=== PATIENT | female | born 1995 | race Caucasian/White ===

== ENCOUNTER 2020-03-29 10:04 | Emergency (ER) | payer BC, SELFPAY ==
[2020-03-29] VITALS (50 sets, daily range): BP systolic 102–161; BP diastolic 70–110; PULSE 110–152; RESP 13–35; TEMP 36.9; O2SAT 94–100
--- NOTE | ~2020-03-29 | US_ITS ---
EXAMINATION: US venous doppler [facility] DATE: 03/29/2020 12:08 INDICATION: Shortness of breath. TECHNIQUE: Grayscale ultrasound images without and with compression and Doppler ultrasound images of the bilateral lower extremity veins were obtained. COMPARISON: None. FINDINGS: The visualized portions of right common femoral vein, profunda (deep) femoral vein, femoral vein, pop liteal vein, posterior tibial veins, peroneal veins, gastrocnemius vein and greater saphenous vein ou tflow are patent. The visualized portions of left common femoral vein, profunda femoral vein, femoral vein, popliteal v ein, posterior tibial veins, peroneal veins, gastrocnemius vein and greater saphenous vein outflow ar e patent. IMPRESSION: 1. No deep venous thrombosis in either lower limb. Reviewed, dictated and finalized at location A.
--- NOTE | ~2020-03-29 | CT_ITS ---
EXAMINATION: CTA chest PE protocol DATE: 03/29/2020 13:08 INDICATION: Shortness of breath. Tachycardia. TECHNIQUE: Computed tomography angiography (CTA) of the chest was performed with 100 mL Omnipaque-350 intravenous contrast timed to evaluate the pulmonary arteries. Coronal maximum intensity projection 3D-reconstructions were created by the technologist. Automated exposure control and iterative reconst ruction technique were employed. The dose-length product was 369.42 mGy-cm. COMPARISON: None. FINDINGS: There is mild atelectasis in left lower lobe. No pleural effusion. There is right ventricul ar enlargement of the heart, consistent with right heart strain. No pericardial effusion. There is a large burden of acute pulmonary emboli involving all lobes. Main pulmonary artery is enlarged, consis tent with pulmonary arterial hypertension. There is a gallstone in the gallbladder. There is mild tho racic spondylosis. IMPRESSION: 1. Large burden of acute pulmonary emboli with right heart strain. I called this result to Dr. Gunnar cloud on 03/29/20 at 13:31. Reviewed, dictated and finalized at location A. IMPRESSION: 1. Large burden of acute pulmonary emboli with right heart strain. I called thi s result to Dr. Hay on 03/29/20 at 13:31.
--- NOTE | ~2020-03-29 | XR_ITS ---
EXAMINATION: XR chest 2V DATE: 03/29/2020 10:30 INDICATION: Shortness of breath. TECHNIQUE: Frontal and lateral views of the chest were obtained. COMPARISON: None. FINDINGS: The chest demonstrates clear lungs without pneumonia, pleural effusion, or pneumothorax. Th e heart size is normal. IMPRESSION: 1. No acute cardiopulmonary disease. Reviewed, dictated and finalized at location A.
--- NOTE | 2020-03-29 10:06 | ECG_ITS ---
Measurements Intervals [place] Rate: 137 P: 59 MT: 108 QRS: 11 QRSD: 88 T: -6 QT: 299 QTc: 452 Interpretive Statements SINUS TACHYCARDIA WITH SHORT MT INTERVAL INCOMPLETE RIGHT BUNDLE BRANCH BLOCK BORDERLINE ST-T WAVE ABNORMALITY- ANT/INF LEADS ABNORMAL ECG Electronically Signed On 03-29-2020 11:12:05 CDT by Malcolm Morrow D.O.
--- NOTE | 2020-03-29 10:30 | ED.SOB ---
HPI - SOB/Dyspnea General Chief Complaint: Shortness of Breath/Dyspnea Stated Complaint: SOB Time Seen by Provider: 03/29/20 10:29 Source: patient Mode of arrival: ambulatory Limitations: no limitations History of Present Illness HPI Narrative: Patient is a 25-year-old female who presents for evaluation of shortness of breath. Patient reports feeling short of breath over the past week. She denies any current chest pain, but states at times she has had some right-sided chest pain. No current jaw pain, neck pain or back pain. No fever, no cough or hemoptysis. Patient is on oral contraceptive and does smoke. No history of blood clot. No recent car or air travel. No leg swelling, patient reports occasional right-sided calf pain. Patient reports bruising to her left thigh and is not sure when that started or why that started. No recent falls or injuries. No recent surgeries. Related Data Home Medications Medication Instructions Recorded Confirmed Lexapro 20 mg PO DAILY 03/29/20 bupropion HCl [Wellbutrin XL] mg PO DAILY 03/29/20 Allergies Allergy/AdvReac Type Severity Reaction Status Date / Time No Known Allergies Allergy Unknown Verified 03/29/20 10:42 Review of Systems Review of Systems: Narrative: CONSTITUTIONAL: Denies fever, chills, or sweats. ENT: Denies rhinorrhea, congestion, sore throat, or otalgia. CARDIOVASCULAR: Denies current chest pain, reports palpitations, denies leg edema RESPIRATORY: Denies cough, reports shortness of breath GASTROINTESTINAL: Denies abdominal pain, nausea, vomiting, or diarrhea. GENITOURINARY: Denies dysuria or hematuria. SKIN: Denies rash or itching. MUSCULOSKELETAL: Denies back pain, joint pain, or myalgia. NEUROLOGIC: Denies headache, numbness, or weakness. [facility] Past Medical History Medical History (Updated 03/29/20 @ 15:48 by Carie Lloyd MD) No pertinent past medical history Surgical History Surgical History Previous section x 2 Social History Social History (Updated 03/29/20 @ 11:32 by Carie Lloyd MD) Smoking status: Current every day smoker Tobacco type: cigarettes Second hand tobacco smoke exposure: No Alcohol intake: current Substance use: never Gender identity (if verbalized by the patient): Female Sexual Orientation (if Verbalized by the Patient): Straight or Heterosexual Exam Narrative: Exam Narrative: GENERAL: Awake, alert, conversant HEAD: Normocephalic, atraumatic. EYES: PERRLA and EOMI. ENT: Nares clear, no rhinorrhea or epistaxis. Mucous membranes moist. NECK: Supple. CHEST: No respiratory distress, breathing even and non labored HEART: Tachycardic, sinus rhythm ABDOMEN:Non distended, non tender EXTREMITIES: Normal range of motion. No edema. No calf tenderness bilaterally. SKIN: Warm, dry, no rash. Scattered ecchymoses present to the left upper thigh. NEURO:No focal deficits. Alert and oriented x3 Course Vital Signs Vital signs: Vital Signs Pulse Rate 142 H 03/29/20 10:23 Respiratory Rate 26 H 03/29/20 10:23 Temperature 36.9 C 03/29/20 10:32 Pulse Rate 118 H 03/29/20 15:06 Respiratory Rate 27 H 03/29/20 15:06 Blood Pressure 121/87 03/29/20 15:06 Pulse Oximetry 97 03/29/20 15:06 Transfer Transfered to: [facility] Transportation: ALS Transfer rationale: Specialty unavailable Accepting physician: MD Joaquin MDM - SOB/Dyspnea MDM Narrative Medical decision making narrative: Patient presenting for evaluation of shortness of breath, palpitations. At the time of initial assessment, ABCs are intact, vital signs notable for tachycardia and tachypnea. No hypoxemia. Patient does not have really any true respiratory distress. No calf tenderness bilaterally. Given symptoms, tachycardia, fact the patient is on control and a smoker, I was very concerned for possible PE of which I explained to the patient.
[2020-03-29 10:32] LABS: Basophils Absolute Auto 0.1 K/mm3 (0.0-0.1); Basophils Percent Auto 0.4 % (0.2-1.2); Eosinophils Absolute Auto 0.2 K/mm3 (0-0.3); Eosinophils Percent Auto 1.2 % (0-4.4); Hematocrit 47.5 % (37.0-47.0); Hemoglobin 16.1 g/dL (12.0-15.0); Immature Granulocyte Absolute 0.06 K/mm3 (0.00-0.031); Immature Granulocyte Percent A 0.4 % (0-0.5); Lymphocytes Absolute Auto 2.24 K/mm3 (0.9-3.2); Lymphocytes Percent Auto 15.1 % (18.3-44.2); Mean Corpuscular HGB Conc 33.9 g/dl (32-36); Mean Corpuscular Hemoglobin 29.3 pg (26-34); Mean Corpuscular Volume 86.4 fl (80-100); Mean Platelet Volume 9.4 fl (7.4-10.4); Monocytes Absolute Auto 0.8 K/mm3 (0.1-0.6); Monocytes Percent Auto 5.1 % (2.6-8.5); Neutrophils Absolute Auto 11.5 K/mm3 (1.3-6.7); Neutrophils Percent Auto 77.8 % (45.5-73.1); Platelet Count Result 370 k/mm3 (150-375); Red Cell Distribution Width 13.5 % (11.5-14.5); White Blood Count 14.8 K/mm3 (4.5-10.0)
[2020-03-29] MEDS: SODIUM CHLORIDE 0.9% IV 1,000 ML 999 ML IV CONT ×2 (10:44)
[2020-03-29 10:45] LABS: Blood Urea Nitrogen 10 mg/dL (7-17); Calcium 9.8 mg/dL (8.4-10.2); Carbon Dioxide 20 mmol/L (22-30); Chloride 107 mmol/L (98-107); Estimated CRCL calculation 139 ml/min; Estimated Glomerular Filt Rate > 60; Glucose 132 mg/dL (65-105); Sodium 137 mmol/L (137-145)
--- NOTE | 2020-03-29 11:08 | PC.NURSE ---
rn report given to fausto
[2020-03-29 11:22] LABS: Add Urine Microscopic? YES; Appearance Urine Clear (Clear); Bilirubin Urine Negative (Negative); Blood Urine 1+ (Negative); Color Urine Yellow (Yellow); Glucose Urine UA Negative (Negative); Ketones Urine 1+ mg/dL (Negative); Leukocyte Esterase Ur Negative LEU/UL (Negative); Mucus Urine Rare /lpf; Nitrate Urine Negative (Negative); Protein Urine Negative (Negative); Specific Grav Ur 1.013 (1.001-1.035); Squamous Epithelial Cell Urine Occasional /hpf (Few); Urobilinogen Urine Negative mg/dL (<2.0); WBC Urine 0-3 /hpf
[2020-03-29 11:49] LABS: Partial Thromboplastin Time 25.6 SECONDS (22.3-36.8); Prothrombin Time 12.9 Seconds (11.1-14.7)
[2020-03-29 11:52] LABS: D Dimer 3.17 ug/mL (<0.48)
--- NOTE | 2020-03-29 12:00 | PC.NURSE ---
Cindy called and states they need a urine . I spoke with tech who sent her urine smaple down and he threw away the extra. Pt given urine cup to try to give another sample but she was then taken to US. Cindy made aware
[2020-03-29 12:21] LABS: NT Pro B Type Natriuretic Pept 1570 PG/ML (5-100)
[2020-03-29 12:26] LABS: Troponin I 0.085 ng/mL (0.000-0.034)
[2020-03-29] MEDS: HEPARIN SODIUM 5,000 UNITS/ML VIAL 7500 UNITS IV PUSH (13:55)
[2020-03-29] MEDS: HEPARIN SOD/D5W 100 UNITS/ML 25,000 UNITS/250 ML BAG 13 UNITS IV CONT (14:01)
--- NOTE | 2020-03-29 16:05 | PC.NURSE ---
Report called to ICU 6 RN, Jia, at [facility].
--- NOTE | 2020-03-29 16:13 | PM.CNCAR ---
Assessment and Plan Assessment and plan (1) Pulmonary embolism: Qualifiers: Acute cor pulmonale presence: with acute cor pulmonale Chronicity: acute Pulmonary embolism type: unspecified Qualified Code(s): I26.09 - Other pulmonary embolism with acute cor pulmonale Code(s): I26.99 - Other pulmonary embolism without acute cor pulmonale Status: Acute Assessment and Plan: She has bilateral PE with significant clot burden, and right ventricular enlargement, indicative of submassive PE, agree with heparin, she needs to be transferred to [facility] to arrange for EKOS (2) Elevated troponin: Code(s): R79.89 - Other specified abnormal findings of blood chemistry Status: Acute Assessment and Plan: Likely is due to right ventricular straining from clot burden with effect on right ventricular pressure, this indicates submassive PE (3) Acute cor pulmonale: Code(s): I26.09 - Other pulmonary embolism with acute cor pulmonale Status: Acute Assessment and Plan: Will arrange for transfer to [facility] for further treatment, Thank you for allowing me to participate in this patient's care, I will be following up with you. Please do not hesitate to call me for any other inquiry History of Present Illness History of Present Illness Consult date/time: 03/29/20 16:13 25 years old lady with no significant past history, came to hospital because of worsening shortness breath and chest pain with fatigue for about a week or so. Stated that she has been feeling fatigue and shortness breath for the past few days but worse yesterday and today when she arrived to the emergency room noted to have tachypnea and tachycardia, CT of the chest showed bilateral PE with right ventricular enlargement. He was started on heparin and she feels slightly better now. She had history of leg swelling both legs but she does not recall history of DVT in the legs. No history of PE or DVT in the past but she is currently on control and she is a smoker. EKG showed sinus tachycardia. Cardiac enzymes with slight elevation. CT of the chest showed bilateral PE with right ventricular enlargement. Reason For Visit: SOB Review of Systems Constitutional: Constitutional: Reports fatigue and Reports lethargy Cardiovascular: Cardiovascular: Reports chest pain, Reports leg edema and Reports palpitations Respiratory: Respiratory: Reports dyspnea and Reports dyspnea on exertion PMFSH Past Medical History Medical History No pertinent past medical history Surgical History Surgical History Previous section x 2 Family History Family History Other Breast cancer Social History Social History Smoking status: Current every day smoker Tobacco type: cigarettes Second hand tobacco smoke exposure: No Alcohol intake: current Substance use: never Gender identity (if verbalized by the patient): Female Sexual Orientation (if Verbalized by the Patient): Straight or Heterosexual Meds Home Medications and Allergies Home Medications Medication Instructions Recorded Confirmed Type norgestimate-ethinyl estradiol 1 tablet PO DAILY #84 tablet 12/19/19 Rx Lexapro 20 mg PO DAILY 03/29/20 History bupropion HCl [Wellbutrin XL] mg PO DAILY 03/29/20 History Allergies Allergy/AdvReac Type Severity Reaction Status Date / Time No Known Allergies Allergy Unknown Verified 03/29/20 10:42 Vital Signs Vital Signs - 24 hr 03/29/20 10:23 03/29/20 10:25 03/29/20 10:32 Temperature 36.9 C Pulse Rate 142 H 136 H 144 H Respiratory Rate 26 H 29 H 15 Blood Pressure 137/98 H 125/91 H Pulse Oximetry 97 96 03/29/20 10:33 03/29/20 10:38 03/29/20 10:45 Temperature
== END 2020-03-29 16:44 | disposition short-term general hospital (02) ==
PROVIDERS: Emergency Provider Emergency Medicine; PCP Family Medicine
DX: I26.09 Other pulmonary embolism with acute cor pulmonale (principal); R79.89 Other specified abnormal findings of blood chemistry; F17.210 Nicotine dependence, cigarettes, uncomplicated; R00.0 Tachycardia, unspecified; I45.10 Unspecified right bundle-branch block; R94.31 Abnormal electrocardiogram [ECG] [EKG]
CPT/HCPCS: 36415; 71046; 71275; 80048; 81001; 81025; 83880; 84443; 84484; 85025; 85380; 85610; 85730; 93005; 93970; 96361; 96365; 96366; 99285; J1644; J7030; Q9967

== ENCOUNTER 2020-04-10 17:54 | Emergency (ER) | payer BC, SELFPAY ==
--- NOTE | ~2020-04-10 | XR_ITS ---
EXAMINATION: XR foot RT min 3V DATE: 04/10/2020 18:17 INDICATION: Right foot pain TECHNIQUE: Dorsoplantar, lateral, and 2 oblique views of the right foot were obtained. COMPARISON: None. FINDINGS: There is no fracture, dislocation, or subluxation. The bones, soft tissues, and joint space s are normal. IMPRESSION: 1. No acute osseous abnormality. Reviewed, dictated and finalized at location A.
--- NOTE | 2020-04-10 17:59 | ED.LOWEXIN ---
HPI - Extremity Injury (Lower) General Chief Complaint: Extremity Injury, Lower Stated Complaint: right ankle injury Time Seen by Provider: 04/10/20 18:09 Source: patient and RN notes reviewed Mode of arrival: ambulatory Limitations: no limitations History of Present Illness HPI Narrative: 25-year-old female with history of bilateral pulmonary embolism and cor pulmonale presents with acute right ankle injury. Reports 2 hours prior to arrival she fell off a sidewalk causing pain in the dorsal lateral right foot. Reports taking Tylenol that improve the pain. MD complaint: ankle injury Injury: Right: ankle Related Data Home Medications Medication Instructions Recorded Confirmed Lexapro 20 mg PO DAILY 03/29/20 bupropion HCl [Wellbutrin XL] mg PO DAILY 03/29/20 albuterol sulfate INHALATION 04/10/20 apixaban [Eliquis] mg 04/10/20 Allergies Allergy/AdvReac Type Severity Reaction Status Date / Time No Known Allergies Allergy Unknown Verified 03/29/20 10:42 Review of Systems Review of Systems: Narrative: CONSTITUTIONAL: Denies malaise, chills, sweats, or fever. CARDIOVASCULAR: Denies chest pain, palpitations, or edema. RESPIRATORY: Denies cough or dyspnea. SKIN: Right foot swelling MUSCULOSKELETAL: Reports right foot pain NEUROLOGIC: Denies numbness, weakness. All systems reviewed & are unremarkable except as noted in HPI and below PMFSH Social History Social History Smoking status: Current every day smoker Tobacco type: cigarettes Second hand tobacco smoke exposure: No Alcohol intake: current Substance use: never Gender identity (if verbalized by the patient): Female Comments At time of signature, agree with nursing past medical, surgical, social and family history. There is no relevant family history pertinent to the presenting complaint Exam Narrative: Exam Narrative: GENERAL: Well-appearing, well-nourished, and in no acute distress. HEAD: Normocephalic, atraumatic. EYES: PERRLA, conjunctivae clear NECK: Supple. CHEST: Speaks in full sentences. No respiratory distress. HEART: Regular rate and rhythm. Normal and equal peripheral pulses. EXTREMITIES: Right foot, digits have normal strength and sensation, normal range of motion. 5/5 strength with ankle and flexion and extension. Small amount of dorsal lateral edema, no ecchymosis. Normal sensation with sensitivity to light touch and pain. No open wounds, no skin tenting, no devitalized tissue or atrophy, no trophic changes, no obvious deformity, alignment normal, no point tenderness, nearby joints and structures intact. Distal pulses palpable and equal bilaterally, skin warm, dry, pink. Capillary refill less than 3 seconds. SKIN: Warm, dry, no rash. NEURO: Alert and oriented x3. PSYCH: Normal mood and affect Course Course Emergency Course: Patient is aware of diagnosis, understands and agrees to treatment plan. Anticipatory guidance given. Patient agrees to follow-up as directed and is aware of reasons to seek care at the emergency department. Portions of this record may have been created with voice recognition software Vital Signs Vital signs: Vital Signs Temperature 97.2 F L 04/10/20 18:07 Pulse Rate 75 04/10/20 18:07 Respiratory Rate 16 04/10/20 18:07 Blood Pressure 120/83 04/10/20 18:07 Pulse Oximetry 99 04/10/20 18:07 Temperature 97.2 F L 04/10/20 18:07 Pulse Rate 75 04/10/20 18:07 Respiratory Rate 16 04/10/20 18:07 Blood Pressure 120/83 04/10/20 18:07 Pulse Oximetry 99 04/10/20 18:07 Reviewed. Patient has cardiac history MDM - Extremity Injury (Lower) MDM Narrative Medical decision making narrative: Patients injury and pain is consistent with musculoskeletal etiology. No signs of neurological or vascular compromise on exam. Compartments and tissues are soft without signs of compartment syndrome. Pain is felt appropriate for further evaluation on a
[2020-04-10 18:07] VITALS: BP 120/83; PULSE 75; RESP 16; TEMP 36.2; O2SAT 99
== END 2020-04-10 18:45 | disposition home or self-care (01) ==
PROVIDERS: Emergency Provider Nurse Practitioner; PCP Family Medicine
DX: S93.601A Unspecified sprain of right foot, initial encounter (principal); W19.XXXA Unspecified fall, initial encounter; F17.210 Nicotine dependence, cigarettes, uncomplicated; Z86.711 Personal history of pulmonary embolism; F41.9 Anxiety disorder, unspecified; F32.9 Major depressive disorder, single episode, unspecified
CPT/HCPCS: 73630; 99213; G0463

== ENCOUNTER 2023-01-21 10:35 | Outpatient (CLI) | payer OTHER, SELFPAY ==
--- NOTE | ~2023-01-21 | US_ITS ---
EXAMINATION: US thyroid DATE: 01/21/2023 11:04 INDICATION: Nontoxic goiter TECHNIQUE: Multiple ultrasound images of the thyroid were obtained. COMPARISON: None. FINDINGS: The right thyroid lobe measures 5.7 x 1.7 x 1.9 cm. The left thyroid lobe measures 5.6 x 0.9 x 1.9 c m. 6 mm wider than tall solid isoechoic nodule with ill-defined margins and with punctate echogenic foci (TI-RADS 4, moderately suspicious , FNA if >=1.5 cm, annual followup is >=1 cm). No other thyroi d nodule identified. There is normal echotexture, echogenicity and vascular flow throughout the remai nder of the thyroid gland. IMPRESSION: 1. 6 mm TI-RADS 4 right thyroid nodule which remains for recommended threshold for either abscess or follow-up. Reviewed, dictated and finalized at location B.
== END 2023-01-21 10:36 | disposition home or self-care (01) ==
PROVIDERS: PCP Family Medicine; Visit Provider Obstetrics & Gynecology
DX: E04.9 Nontoxic goiter, unspecified (principal)
CPT/HCPCS: 76536

== ENCOUNTER 2023-04-02 18:43 | Emergency (ER) | payer OTHER, SELFPAY ==
--- NOTE | 2023-04-02 18:45 | ED.URI ---
HPI - URI/Sore Throat General Chief Complaint: Upper Respiratory Infection Stated Complaint: Fever/Ear Irritation/Throat Time Seen by Provider: 04/02/23 18:44 Source: patient Mode of arrival: ambulatory Limitations: no limitations History of Present Illness HPI Narrative: Patient is a 28-year-old female who presents with sore throat, ear pain, fever, chills, fatigue and decreased appetite since Thursday evening. Patient has been taking ibuprofen and Tylenol for fever but has not taken any thing else. States she has history of strep. States her kids and are not ill at this time. Denies any nausea, vomiting, diarrhea. Related Data Home Medications Medication Instructions Recorded Confirmed Lexapro 20 mg PO DAILY 03/29/20 04/02/23 bupropion HCl 150 mg 24 hr tablet, 150 mg PO DAILY 03/29/20 04/02/23 extended release (Wellbutrin XL) Allergies Allergy/AdvReac Type Severity Reaction Status Date / Time No Known Allergies Allergy Unknown Verified 01/12/23 11:26 Review of Systems Review of Systems: All systems reviewed & are unremarkable except as noted in HPI and below Constitutional: Constitutional: Reports body ache(s), Reports chills, Reports fatigue, Reports fever(s), Denies headache(s), Denies malaise and Denies weakness Eyes: Eyes: Denies blurry vision, Denies itchy eyes and Denies loss of vision ENT: Reports otalgia, Denies headache(s), Denies nasal congestion, Denies sinus pain and Reports sore throat Cardiovascular: Cardiovascular: Denies chest pain, Denies irregular heart rhythm and Denies dyspnea Respiratory: Respiratory: Denies cough and Denies dyspnea Gastrointestinal: Gastrointestinal: Denies abdominal pain, Denies diarrhea, Denies nausea and Denies vomiting Musculoskeletal: Musculoskeletal: Denies back pain, Denies myalgias and Denies arthralgias Integumentary/Breasts: Skin/Breast: Denies pruritus and Denies rash Neurologic: Denies headache(s), Denies loss of vision and Denies weakness Psychiatric: Psychiatric: Reports no additional psychiatric complaints Endocrine: Endocrine: Denies fatigue Allergic/Immunologic: Allergic/Immunologic: Denies itchy eyes PMFSH Past Medical History Medical History Exposure to chlamydia, mucopurulent cervitis/nongonococcal urethritis No pertinent past medical history Pulmonary emboli Surgical History Surgical History History of cholecystectomy Previous section x 2 Family History Family History Other Breast cancer Social History Social History Smoking status: Former smoker Tobacco type: cigarettes Second hand tobacco smoke exposure: No Smoking end date: 03/29/20 Alcohol intake: current Substance use: never Lack of Transportation: No Lack of Food: Never True Current Housing: I Have Housing Concerned About Future Housing: No Difficulty Paying Gas/Electric Bills: No Difficulty Paying for Meds: No Currently Unemployed: No Education: High School Diploma/GED Difficulty w/ Childcare or Family Care: No Gender identity (if verbalized by the patient): Female Sexual Orientation (if Verbalized by the Patient): Straight or Heterosexual Comments At time of signature, agree with nursing past medical, surgical, social and family history. There is no relevant family history pertinent to the presenting complaint. Exam Const: General: cooperative, healthy appearing, comfortable, no acute distress and well nourished Nutritional Appearance: well nourished Orientation/consciousness: patient oriented x3 Limitations: no limitations HENMT: Head: normal to inspection, normocephalic and atraumatic Ears: hearing grossly normal bilaterally, external ears normal, TM's normal bilaterally, EAC's normal and
[2023-04-02 18:56] VITALS: BP 130/70; PULSE 111; RESP 16; TEMP 36.3; O2SAT 98
== END 2023-04-02 19:06 | disposition home or self-care (01) ==
PROVIDERS: Emergency Provider Nurse Practitioner Family; PCP Family Medicine
DX: J02.0 Streptococcal pharyngitis (principal); Z87.891 Personal history of nicotine dependence; Z86.711 Personal history of pulmonary embolism
CPT/HCPCS: 87880; 99213; G0463

== ENCOUNTER 2024-03-28 12:58 | Outpatient (CLI) | payer OTHER, SELFPAY ==
--- NOTE | ~2024-03-28 | US_ITS ---
EXAMINATION: US thyroid DATE: 03/28/2024 13:13 INDICATION: Nontoxic goiter, unspecified. TECHNIQUE: Multiple ultrasound images of the thyroid were obtained. COMPARISON: Ultrasound 01/21/2023 FINDINGS: The right thyroid lobe measures 5.6 x 1.8 x 1.9 cm. The left thyroid lobe measures 4.8 x 1.7 x 1.3 c m. In the right thyroid lobe, there is a 7 mm solid, hypoechoic, wider than tall nodule with irregul ar margin and punctate echogenic foci (TI-RADS TR5). IMPRESSION: 1. Right thyroid nodule, stable from 01/21/2023. Thyroid ultrasound is recommended in one year. Reviewed, dictated and finalized at location E. IMPRESSION: 1. Right thyroid nodule, stable from 01/21/2023. Thyroid ultrasound is recommende d in one year.
== END 2024-03-28 12:59 ==
LOC: GOSHIMG 12:59
PROVIDERS: PCP Family Medicine; Visit Provider Obstetrics & Gynecology
DX: E04.9 Nontoxic goiter, unspecified (principal)
CPT/HCPCS: 76536

== ENCOUNTER 2025-03-10 12:50 | Outpatient (CLI) | payer OTHER, SELFPAY ==
--- NOTE | ~2025-03-10 | US_ITS ---
Thyroid ultrasound. Clinical History: Thyroid nodule COMPARISON: 03/28/2024 Findings: Real-time sonography of the thyroid gland was performed. The right lobe measures 5.4 x 1.7 x 2.0 cm. The left lobe measures 4.7 x 1.3 x 1.7 cm. The isthmus is 4 mm in AP diameter. There is a 6 mm hypoechoic solid nodule at the right lower pole. Impression: Stable 6 mm hypoechoic nodule at the right lower thyroid pole.. Reviewed, dictated and finalized at location M. Impression: Stable 6 mm hypoechoic nodule at the right lower thyroid pole..
== END 2025-03-10 12:51 | disposition home or self-care (01) ==
LOC: GOSHIMG 12:51
PROVIDERS: PCP Family Medicine; Visit Provider Nurse Practitioner Family
DX: E04.1 Nontoxic single thyroid nodule (principal)
CPT/HCPCS: 76536